=== PATIENT | female | born 1965 | race Two or more races ===

== ENCOUNTER 2024-05-08 12:45 | Inpatient (IN) | payer OTHER ==
[~2024-05-08] VITALS: Ht 91.4 cm; Wt 68.9 kg
[2024-05-08] MEDS ORDERED: JENTADUETO XR1 EAC1 PO (13:45)
[2024-05-08] MEDS ORDERED: ZESTRIL2.5 MG PO (13:46)
[2024-05-08 14:06] VITALS: BP 144/90
[2024-05-08 14:10] VITALS: BP 140/80
[2024-05-13] MEDS ORDERED: CEFAZOLIN SODIUM 1,000 MG VIAL IV ONE (12:30)
[2024-05-13] MEDS ORDERED: POVIDONE-IODINE 118 ML BOTT TOP ONE (13:15)
[2024-05-13] MEDS ORDERED: SUGAMMADEX SODIUM 200 MG/2 ML VIAL IV ONE (14:45)
[2024-05-13] MEDS ORDERED: MORPHINE SULFATE 4 MG/ML VIAL IV ONE ×2 (15:20→15:50)
[2024-05-13] MEDS ORDERED: RINGERS SOLUTION,LACTATED 1,000 ML IV SCH (16:15)
[2024-05-13] MEDS ORDERED: ONDANSETRON HCL 2 MG/ML VIAL IV SCH (17:00)
[2024-05-13] MEDS ORDERED: MEPERIDINE HCL/PF 25 MG/ML VIAL IM SCH (17:00)
[2024-05-13] MEDS ORDERED: PROMETHAZINE HCL 50 MG/ML AMPUL IM SCH (17:00)
[2024-05-13] MEDS ORDERED: CEFAZOLIN SODIUM 1,000 MG VIAL IV SCH (17:00)
[2024-05-13] MEDS ORDERED: CEFAZOLIN SODIUM 1,000 MG VIAL ONE (17:23)
[2024-05-13] MEDS ORDERED: ONDANSETRON HCL 2 MG/ML VIAL ONE (18:10)
[2024-05-13 19:00] VITALS: BP 140/80
[2024-05-14 00:35] VITALS: BP 149/80
[2024-05-14] MEDS ORDERED: OxyCODONE HCL/APAP UD (PERCOCET) PO SCH (06:00)
[2024-05-14 08:58] VITALS: BP 115/71
[2024-05-14 15:56] VITALS: BP 140/85
[2024-05-15] VITALS: BP 140/80
[2024-05-15 08:58] VITALS: BP 142/84
== END 2024-05-15 13:48 | disposition home or self-care (01) | DRG 743 ==
LOC: O/R 05-13 05:08 → OB/GYN 05-13 05:08
PROVIDERS: ADMIT Obstetrics & Gynecology; ATTEND Obstetrics & Gynecology
PROC: 0UT70ZZ Resection of Bilateral Fallopian Tubes, Open Approach (ICD-10-PCS; 2024-05-13)
PROC: 0DNW0ZZ Release Peritoneum, Open Approach (ICD-10-PCS; 2024-05-13)
PROC: 0UT20ZZ Resection of Bilateral Ovaries, Open Approach (ICD-10-PCS; 2024-05-13)
PROC: 0UT90ZZ Resection of Uterus, Open Approach (ICD-10-PCS; principal; 2024-05-13 08:45)
DX: D25.1 Intramural leiomyoma of uterus (principal); N72 Inflammatory disease of cervix uteri; Z20.822 Contact with and (suspected) exposure to COVID-19